=== PATIENT | female | born 1980 | race Caucasian/White ===

== ENCOUNTER 2021-02-20 06:18 | Inpatient (IN) | payer BC ==
[~2021-02-20] VITALS: Ht 177.8 cm; Wt 170.0 kg
[2021-02-20] MEDS ORDERED: metoclopramide 5 mg/ml inj IV ONE (06:40)
--- NOTE | 2021-02-20 06:58 | NUR ---
spoke to posion control and informed about the pt tylenol and salicylate level informed that acetaminophen repeated level is 425.3 and it was 536.14 before and salicylate level is 3.30 ,lactic acid 5.31 .also informed about current set of vitals bp87/54and few min ago was 129/96,pt is alert oriented x 4.pt hr 63,spo2 100 ,rr 17.nsr. as per posion control repeat salicylate level ,chemistry and lactic acid rgt now and start 1st dose: acetyl cystine {mycomst}150 mg/kg loading dose . 2 nd dose :50 mg /kg in 4 hours 3 rd dose 200 mg /kg in 16 hr . repeat the tylenol ,LFT,INR ONE HOUR prior to the end of last infusion .tylenol level shd be negative ,LFT Not rising and INR shd be less than 2 . posion control will contact us in betw. conveyed the information to dr chappell and dr hung who is at dr station.
[2021-02-20] MEDS ORDERED: ACETYLCYSTEINE IV ONE ×3 (07:05→13:20)
[2021-02-20] MEDS ORDERED: WATER IV ONE ×3 (07:05→13:20)
[2021-02-20] MEDS ORDERED: DEXTROSE 5% IV ONE ×3 (07:05→13:20)
[2021-02-20 07:10] LABS: BASOPHILS % (AUTO) 0.4 % (0-1); EOSINOPHILS % (AUTO) 0 % (0-6); HEMATOCRIT 37.8 % (35.0-45.0); HEMOGLOBIN 12.6 g/dl (12.0-16.0); LYMPHOCYTES # (AUTO) 0.9 X10'3 (1.1-4.8); LYMPHOCYTES % (AUTO) 17.2 % (21-51); MEAN CORPUSCULAR HEMOGLOBIN 32.7 PG (27.0-31.0); MEAN CORPUSCULAR HGB CONC 33.3 g/dL (33.0-36.5); MEAN CORPUSCULAR VOLUME 98.1 FL (78-98); MEAN PLATELET VOLUME 7.3 FL (7.4-10.4); MONOCYTES # (AUTO) 0.4 X10'3 (0-0.9); NEUTROPHILS # (AUTO) 4.1 X10'3 (1.8-7.7); NEUTROPHILS % (AUTO) 74.4 % (42-75); PLATELET COUNT 300 X10'3 (140-440); RED BLOOD COUNT 3.85 X10'6 (4.20-5.60); RED CELL DISTRIBUTION WIDTH 13.5 % (11.5-14.5); WHITE BLOOD COUNT 5.5 X10'3 (4.5-11.0)
--- NOTE | 2021-02-20 07:18 | NUR ---
waiting for acetylcysteine from the pharmacy .sent the government relations analyst to pharmacy ,then will start the infusion.
[2021-02-20 07:29] LABS: ALANINE AMINOTRANSFERASE 35 U/L (12-78); ALBUMIN 3.1 G/DL (3.4-5.0); ALBUMIN/GLOBULIN RATIO 0.9 (1.1-1.5); ALKALINE PHOSPHATASE 61 IU/L (46-116); ANION GAP 12 (8-16); ASPARTATE AMINO TRANSFERASE 30 U/L (10-37); BILIRUBIN,TOTAL 0.2 MG/DL (0.1-1.0); BLOOD UREA NITROGEN 11 MG/DL (7-18); BUN/CREATININE RATIO 14.7 (6.6-38.0); CALCIUM 7.7 MG/DL (8.5-10.1); CHLORIDE 105 MMOL/L (99-107); CREATININE 0.75 MG/DL (0.40-0.90); GLUCOSE 131 MG/DL (70-104); POTASSIUM 4.1 MMOL/L (3.5-5.1); SODIUM 136 MMOL/L (135-145); TOTAL CARBON DIOXIDE 18.9 MMOL/L (24-32); TOTAL PROTEIN 6.4 G/DL (6.4-8.2); eGFR 85 ML/MIN
[2021-02-20 07:43] LABS: ETHANOL 0.032 GM/DL (0.0-0.010)
[2021-02-20] MEDS ORDERED: diphenhydrAMINE 50 mg/ml inj IV PRN (07:45)
[2021-02-20] MEDS ORDERED: bisacodyl 10mg suppository rectal RC PRN (07:45)
[2021-02-20] MEDS ORDERED: HYDROcodone/acetaminophen 5mg/325mg tablet PO PRN (07:45)
[2021-02-20] MEDS ORDERED: cyclobenzaprine 10mg tablet PO PRN (07:45)
[2021-02-20] MEDS ORDERED: HYDROcodone/acetaminophen 10/325mg tab PO PRN (07:45)
[2021-02-20] MEDS ORDERED: haloperidol 5mg tablet PO PRN (07:45)
[2021-02-20] MEDS ORDERED: morphine 2 MG/ML inj. syringe IV PRN ×2 (07:45)
[2021-02-20] MEDS ORDERED: acetaminophen 325mg tablet PO PRN (07:45)
[2021-02-20] MEDS ORDERED: dextrose 50%-water 50ml dispensing syringe IV PRN (07:45)
[2021-02-20] MEDS ORDERED: mag hydrox/Alum hydrox/simeth 30ml oral suspension PO PRN (07:45)
[2021-02-20] MEDS ORDERED: loperamide 2mg capsule PO PRN (07:45)
[2021-02-20] MEDS ORDERED: diphenhydrAMINE 25mg capsule PO PRN (07:45)
[2021-02-20] MEDS ORDERED: haloperidol lactate 5mg/ml inj IM PRN (07:45)
[2021-02-20] MEDS ORDERED: ondansetron 4mg rapidly disintigrating tab PO PRN (07:45)
[2021-02-20] MEDS ORDERED: LORazepam 2 mg/ml vial IV PRN (07:45)
[2021-02-20] MEDS ORDERED: ondansetron/PF 4mg/2ml inj IV PRN (07:45)
[2021-02-20] MEDS ORDERED: magnesium hydroxide 30ml (MOM) UD suspension PO PRN (07:45)
[2021-02-20 07:49] LABS: ACETAMINOPHEN 226.5 UG/ML (10-30)
[2021-02-20] MEDS ORDERED: folic acid inj. 2 MG, thiamine inj. 100 MG, MVI, adult No.4 with vit. K 10 ML in dextro... IV SCH ×4 (08:00)
[2021-02-20] MEDS: docusate sod 100mg capsule PO SCH ×2 (08:00→20:00)
[2021-02-20] MEDS ORDERED: folic acid 1mg/0.2ml inj IV SCH (08:00)
[2021-02-20] MEDS: multivitamins, therapeutics tablet PO SCH (08:00)
--- NOTE | 2021-02-20 08:02 | NUR ---
laborer stores at bedside to draw blood.
[2021-02-20] MEDS ORDERED: thiamine inj. 100 MG in normal saline 100ml IV soln 100 ML IV ONE (08:05)
--- NOTE | 2021-02-20 08:20 | NUR ---
spoke to dr hung in er regarding pt low bp informe dthat [id number] sysytolic as per md give 500 ml n.s bolus iv and then repeat the 1l bolus if the bp gets below 90 goal systolic is above 90. and check urine output started ta 0830 -0930 urine output shd be 100 ml and next hpour shd be 50 ml and keep monitoring.
[2021-02-20] MEDS: dextrose 5%-1/2 normal saline 1,000 ML IV SCH ×2 (08:22→17:45)
[2021-02-20 08:29] LABS: PARTIAL THROMBOPLASTIN TIME 23 SECONDS (22-32)
[2021-02-20] MEDS: folic acid 1mg tablet PO SCH (08:41)
[2021-02-20 08:54] LABS: CREATINE KINASE 35 U/L (26-192); LIPASE 71 U/L (73-393); MAGNESIUM 1.7 MG/DL (1.5-2.4); TROPONIN I < 0.04 NG/ML (0.0-0.05)
[2021-02-20 09:50] LABS: URINE HCG NEGATIVE (NEG)
[2021-02-20 09:56] LABS: CLARITY,URINE CLEAR (Clear); COLOR,URINE YELLOW (Yellow); UA COLLECTION TYPE FOLEY CATH
[2021-02-20 09:57] LABS: GLUCOSE, URINE NEGATIVE (Neg); KETONES,URINE >=160 mg/dl (Neg); LEUKOCYTE ESTERASE ,URINE NEGATIVE (Neg); NITRITES, URINE NEGATIVE (Neg); OCCULT BLOOD,URINE TRACE-INTACT (Neg); PROTEIN,URINE NEGATIVE (Neg); UROBILINOGEN,URINE 0.2 E.U/dL (0.2-1.0)
[2021-02-20 10:06] LABS: URINE AMPHETAMINE SCREEN NEGATIVE (Neg); URINE BARBITUATE SCREEN NEGATIVE (Neg); URINE BENZODIAZEPINES SCREEN NEGATIVE (Neg); URINE CANNABINOID SCREEN NEGATIVE (Neg); URINE COCAINE SCREEN NEGATIVE (Neg); URINE METHADONE SCREEN NEGATIVE (Neg); URINE OPIATE SCREEN NEGATIVE (Neg); URINE PHENCYCLIDINE SCREEN NEGATIVE (Neg)
[2021-02-20 10:12] LABS: MUCUS STRANDS FEW /LPF (Neg); SQUAMOUS EPITHELIAL CELL,UR FEW /LPF (FEW)
[2021-02-20 10:13] LABS: BACTERIA,URINE FEW /HPF (Neg); WBC,URINE 0-4 /HPF (0-4)
[2021-02-20] MEDS ORDERED: NO HOME MEDS PO (10:46)
--- NOTE | 2021-02-20 12:22 | NUR ---
pt ao x4 no nausea or vomiting from last 2 hr ,pt communicating with the friend laughing and chatting no distress noted ,pt acetylcysteine drip is infusing as per md orders .pt denies any concern at this time vitals are stable ,urine output is good.
[2021-02-20] MEDS ORDERED: acetylcysteine IV (Acetadote) 7,700 MG in dextrose 5%-water 961.5 ML IV ONE (13:10)
[2021-02-20 14:30] VITALS: BP 129/71
[2021-02-20 15:00] VITALS: BP 117/53
[2021-02-20 18:00] VITALS: BP 119/60
--- NOTE | 2021-02-20 18:48 | NUR ---
Problems reprioritized. Patient report given, questions answered & plan of care reviewed with Avani ADAMS.
--- NOTE | 2021-02-20 20:00 | NUR ---
patient states she feels at the better place mentally but feels stuck physically. She was not willing to elaborate on what she said. Patient mentioned her swollen cheek. She thinks she must have hit her face when she fell earlier.
[2021-02-20] MEDS ORDERED: temazepam 15mg capsule PO PRN (21:00)
--- NOTE | 2021-02-20 21:00 | NUR ---
patient stable speaking with boyfriend on hospital phone. She denies pain or discomfort. Sitter remain at bedside. Will continue frequent rounding
[2021-02-20 22:00] VITALS: BP 115/63
--- NOTE | 2021-02-21 00:14 | NUR ---
Dr. Miller called about patient swollen Left cheek. CT of head order given.
[2021-02-21 02:00] VITALS: BP 105/60
--- NOTE | 2021-02-21 02:07 | NUR ---
I was able to chat a little bit with patient a few minutes ago. She verbalizes that she would want to be a DNR if something to happen to her. She does not want any life saving measures. She is saddened that her son refuses to speak to her. She also states that she would like to speak to mental health specialist before she lives the hospital. She states she has good support system including a wonderful boyfriend but she needs help from a specialist before is discharged home.
[2021-02-21] MEDS: dextrose 5%-1/2 normal saline 1,000 ML IV SCH ×2 (03:46→07:32)
[2021-02-21 06:00] VITALS: BP 106/63
--- NOTE | 2021-02-21 06:23 | NUR ---
Patient in room PCU 3012. I have received report from BRYAN Varma and had the opportunity to ask questions and assume patient care.
--- NOTE | 2021-02-21 06:24 | NUR ---
Problems reprioritized. Patient report given, questions answered & plan of care reviewed with BRYAN Vides.
[2021-02-21 06:34] LABS: BASOPHILS # (AUTO) 0.1 X10'3 (0-0.2); BASOPHILS % (AUTO) 0.7 % (0-1); EOSINOPHILS # (AUTO) 0.1 X10'3 (0-0.9); EOSINOPHILS % (AUTO) 1.1 % (0-6); HEMOGLOBIN 11.4 g/dl (12.0-16.0); LYMPHOCYTES # (AUTO) 2.9 X10'3 (1.1-4.8); LYMPHOCYTES % (AUTO) 37.9 % (21-51); MEAN CORPUSCULAR HEMOGLOBIN 33.8 PG (27.0-31.0); MEAN CORPUSCULAR HGB CONC 34.6 g/dL (33.0-36.5); MEAN CORPUSCULAR VOLUME 97.8 FL (78-98); MEAN PLATELET VOLUME 7.5 FL (7.4-10.4); MONOCYTES # (AUTO) 0.5 X10'3 (0-0.9); MONOCYTES % (AUTO) 7.2 % (2-12); NEUTROPHILS % (AUTO) 53.1 % (42-75); PLATELET COUNT 259 X10'3 (140-440); RED BLOOD COUNT 3.38 X10'6 (4.20-5.60); RED CELL DISTRIBUTION WIDTH 13.3 % (11.5-14.5); WHITE BLOOD COUNT 7.5 X10'3 (4.5-11.0)
[2021-02-21] MEDS: folic acid 1mg tablet PO SCH (07:01)
[2021-02-21] MEDS: docusate sod 100mg capsule PO SCH ×2 (07:01→07:03)
[2021-02-21] MEDS: multivitamins, therapeutics tablet PO SCH (07:01)
[2021-02-21] MEDS ORDERED: pantoprazole 40 MG vial IV SCH (08:00)
[2021-02-21 09:34] LABS: ALANINE AMINOTRANSFERASE 28 U/L (12-78); ALBUMIN 2.8 G/DL (3.4-5.0); ALBUMIN/GLOBULIN RATIO 0.9 (1.1-1.5); ALKALINE PHOSPHATASE 52 IU/L (46-116); ANION GAP 8 (8-16); ASPARTATE AMINO TRANSFERASE 16 U/L (10-37); BILIRUBIN,DIRECT 0.1 MG/DL (0-0.3); BILIRUBIN,TOTAL 0.6 MG/DL (0.1-1.0); BLOOD UREA NITROGEN 4 MG/DL (7-18); BUN/CREATININE RATIO 5.6 (6.6-38.0); CALCIUM 7.5 MG/DL (8.5-10.1); CHLORIDE 110 MMOL/L (99-107); CHOLESTEROL 142 MG/DL (0-200); CREATININE 0.72 MG/DL (0.40-0.90); GLUCOSE 110 MG/DL (70-104); HDL CHOLESTEROL 47 MG/DL (35-60); LDL CHOLESTEROL 76 MG/DL (50-100); POTASSIUM 3.1 MMOL/L (3.5-5.1); SODIUM 141 MMOL/L (135-145); TOTAL CARBON DIOXIDE 23.4 MMOL/L (24-32); TOTAL PROTEIN 5.9 G/DL (6.4-8.2); TRIGLYCERIDES 151 MG/DL (20-135); eGFR 89 ML/MIN
[2021-02-21 09:36] LABS: ACETAMINOPHEN < 2.0 UG/ML (10-30)
[2021-02-21 11:00] VITALS: BP 116/72
[2021-02-21 15:00] VITALS: BP 117/79
--- NOTE | 2021-02-21 18:16 | NUR ---
Patient in room PCU 3012A. I have received report from BRYAN Vides and had the opportunity to ask questions and assume patient care.
--- NOTE | 2021-02-21 18:19 | NUR ---
Problems reprioritized. Patient report given, questions answered & plan of care reviewed with BRYAN Nicolas.
--- NOTE | 2021-02-21 18:35 | NUR ---
Patient IV discontinued; all belongings sent home with patient. Discharge instructions reviewed, instructed to follow up, patient verbalized understanding to all education given. Patient escorted out with PCT, ambulated out of unit with s steady gait.
[2021-02-22] MEDS ORDERED: LORazepam 1 MG tablet PO PRN (07:45)
[2021-02-22] MEDS ORDERED: LORazepam 2 mg/ml vial IV PRN (07:45)
[2021-02-24] MEDS ORDERED: LORazepam 2 mg/ml vial IV PRN (07:45)
[2021-02-24] MEDS ORDERED: LORazepam 1 MG tablet PO PRN (07:45)
== END 2021-02-21 18:45 | disposition home or self-care (01) | DRG 918 ==
LOC: ER 06:19 → ED HOLD 07:49 → PCU 3S 15:10
PROVIDERS: ADMIT Family Medicine; ATTEND Internal Medicine
DX: T39.1X2A Poisoning by 4-Aminophenol derivatives, intentional self-harm, initial encounter (principal); E87.2 Acidosis; F32.A Depression, unspecified; F15.10 Other stimulant abuse, uncomplicated; F10.229 Alcohol dependence with intoxication, unspecified; E86.1 Hypovolemia; Y90.9 Presence of alcohol in blood, level not specified; T39.012A Poisoning by aspirin, intentional self-harm, initial encounter; E86.0 Dehydration; Y92.89 Other specified places as the place of occurrence of the external cause; Z91.51 Personal history of suicidal behavior; Z79.899 Other long term (current) drug therapy
CPT/HCPCS: 36415; 80053; 80061; 80305; 80320; 80329; 81001; 81025; 82248; 82550; 83036; 83605; 83690; 83735; 83880; 84100; 84443; 84484; 85025; 85610; 85730; 87081; 93005; 96365; 96375; 99285; C9113; G0378; J0132; J2270; J2405; J2765; J3411; J7060; J7070